=== PATIENT | female | born 1990 | race Caucasian/White ===

== ENCOUNTER 2024-06-24 10:15 | Outpatient (CLI) | payer OTHER, MEDICAID, SELFPAY | END 2024-06-24 10:16 | disposition home or self-care (01) | PROVIDERS: Visit Provider Advanced Practice Midwife | DX: Z34.81 Encounter for supervision of other normal pregnancy, first trimester (principal); Z67.40 Type O blood, Rh positive | CPT/HCPCS: 86592; 86703; 86704; 86706; 86762; 86787; 86803; 86850; 86900; 86901; 87086; 87340 ==